=== PATIENT | female | born 1930 | race Caucasian/White ===

== ENCOUNTER 2016-04-12 12:27 | Emergency (ER) | payer MEDICARE, MEDICAID ==
--- NOTE | 2016-04-14 13:11 | ER ---
ADMIT: 04/12/2016 RM/LOC: ER [facility] MR#: [id number] [id number] [id number] [place] [address] Emergency Room Report SEX: F AGE: 86 : 1930 DATE: 04/12/2016 An 86-year-old female, living in the assisted living area where she slipped on a wet floor striking back of her head. CT scan was unremarkable. CBC was significant for hemoglobin 11.1. Chemistries; potassium 3.6, glucose 318. She is discharged with head injury diagnosis. Encouraged to follow up primary doctor as needed. Hua Arevalo MD/ raphael JOB #: [id number] CC: Hua Arevalo MD, Attending Physician Veronica Starr MD, Family Physician
== END 2016-04-12 14:30 | disposition home or self-care (01) ==
LOC: ER 12:27
DX: S09.90XA Unspecified injury of head, initial encounter (principal); E11.9 Type 2 diabetes mellitus without complications; Z79.4 Long term (current) use of insulin; Z79.82 Long term (current) use of aspirin; W01.0XXA Fall on same level from slipping, tripping and stumbling without subsequent striking against object, initial encounter